=== PATIENT | male | born 1965 | race Caucasian/White ===

== ENCOUNTER 2017-10-20 14:56 | Inpatient (IN) ==
[2017-10-20] MEDS ORDERED: SALINE FLUSH 10ml SYRINGE IVF PRN (15:09)
[2017-10-20] MEDS ORDERED: NS 1,000 ML IV ONE (15:24)
--- OUTSIDE RECORDS SUMMARY | 2017-10-20 15:27 | External Medical Summary ---
:1965 Author Organization [employer] Care Team Providers Name Role Phone Josemanuel Zendejas Provider Role Unavailable Allergies No Known Allergies Problems No Known Problems Medications No Known Medications Results No Known Results Summary Purpose eClinicalWorks Submission
--- OUTSIDE RECORDS SUMMARY | 2017-10-20 15:27 | External Medical Summary ---
:1965 Author Organization [employer] Care Team Providers Name Role Phone Juan Luis Mayberry Provider Role Unavailable Allergies, Adverse Reactions, Alerts Substance Reaction Event Type N.K.D.A. Info Not Available Non Drug Allergy Problems Problem Type Condition ICD-9 Code Onset Dates Condition Status Problem DM I [Diabetes mellitus type I] 250.01 Active Problem HTN [Hypertension] 401.9 Active Problem ASTHMA NOS 493.90 Active Assessment Pneumonia 486 Active Medications Medication Code Code Instructions Start End Date Status Dosage System Date Levaquin NDC 6466 500 mg orally May 01, Active 1 tab(s) every 24 hours 2013 amlodipine NDC 00321 5 May 28, Active TAKE ONE 2013 TABLET BY MOUTH EVERY DAY Humulin 70/30 NDC 6306 human recombinant December 17, Active 10 units 70 units-30 2011 units/mL subcutaneously 2 times a day Lantus NDC 31625 100 units/mL Active 25 units subcutaneously qhs metoprolol NDC 44055 50 mg orally 2 Active 1 tab(s) times a day Albuterol HFA NDC 0 8.5gm - q 4 hours Apr 07, Active as directed pro air inhaler prn 2011 omeprazole NDC 07003 20 mg orally once Active 1 cap(s) a day Metoprolol NDC 1073 50MG Active TAKE ONE Tartrate TABLET BY MOUTH TWICE DAILY FOR 30 DAYS Reglan NDC 949 10 mg orally 4 Jul 11, Active 1 tab(s) times a day 2013 (before meals and at bedtime) Ventolin HFA NDC 0 90 mcg/inh inhaled Feb 16, Active 1-2 puffs (small) q 4 hours prn 2012 lisinopril NDC 49290 40 mg orally once Jun 25, Active 1 tab(s) a day 2013 Procedures Procedure Coding System Code Date Office/Outpatient Visit-Est CPT-4 35762 May 01, 2014 Rocephin CPT-4 J0696 May 01, 2014 Vital Signs Date/Time: May 01, 2014 Temperature 97.4 F Blood Pressure Diastolic 70 mm Hg Blood Pressure Systolic 140 mm Hg BMI 20.33 Index Height 69 in Weight 137.7 lbs Pulse 106 /min Results No Known Results Summary Purpose eClinicalWorks Submission
--- OUTSIDE RECORDS SUMMARY | 2017-10-20 15:27 | External Medical Summary ---
:1965 Author Organization [facility] Spec Address [address] [place] [address] Care Team Providers Name Role Phone Juan Luis Mayberry Unavailable Unavailable PROBLEMS Type Condition ICD9-CM Code [id number] Code Onset Condition SNOMED Code Dates Status Problem Type 1 diabetes E10.621 Active 264140973 mellitus with foot ulcer Problem HTN 401.9 Active 23008191 (hypertension) Problem ASTHMA NOS 493.90 Active 126776863 Problem DM I [Diabetes 250.01 Active 331271790 mellitus type I] ALLERGIES Unknown Allergies SOCIAL HISTORY No smoking Hx information available PLAN OF CARE VITAL SIGNS MEDICATIONS Unknown Medications RESULTS No Results PROCEDURES No Known procedures IMMUNIZATIONS No Known Immunizations
--- OUTSIDE RECORDS SUMMARY | 2017-10-20 15:27 | External Medical Summary ---
:1965 Author Organization eClinicalWorks Care Team Providers Name Role Phone Juan Luis Mayberry Provider Role Unavailable Allergies, Adverse Reactions, Alerts Substance Reaction Event Type N.K.D.A. Info Not Available Non Drug Allergy Problems Problem Type Condition Code Onset Dates Condition Status Assessment Neuropathy 355.9 Active Assessment HTN (hypertension) 401.9 Active Problem ASTHMA NOS 493.90 Active Problem DM I [Diabetes mellitus type I] 250.01 Active Problem HTN (hypertension) 401.9 Active Assessment ASTHMA NOS 493.90 Active Assessment Contracture of joint of right hand 718.44 Active Assessment CTS (carpal tunnel syndrome) 354.0 Active Assessment DM I [Diabetes mellitus type I] 250.01 Active Medications Medication Code System Code Instructions Start Date End Date Status Dosage Humulin 70/30 NDC 6306 human recombinant December 17 units 70 units-30 2011 units/mL subcutaneously 2 times a day omeprazole NDC 02331 20 mg orally once a 1 cap(s) day Lantus NDC 17406 100 units/mL 25 units subcutaneously qhs lisinopril NDC 00418 40 mg orally once a September 11 tab(s) day 2014 Procedures Procedure Coding System Code Date Office/Outpatient Visit-Est CPT-4 90427 September 11, 2014 Glycated Hemoglobin Test CPT-4 07190 September 11, 2014 Vital Signs Date/Time: September 11, 2014 Temperature 97.9 F Blood Pressure Diastolic 102 mm Hg Blood Pressure Systolic 172 mm Hg BMI 21.45 Index Height 69 in Weight 145.3 lbs Pulse 86 /min Results No Known Results Summary Purpose eClinicalWorks Submission
--- OUTSIDE RECORDS SUMMARY | 2017-10-20 15:27 | External Medical Summary ---
:1965 Author Organization [email or web address] Care Team Providers Name Role Phone Juan Luis Mayberry Provider Role Unavailable Allergies No Known Allergies Problems Problem Type Condition ICD-9 Code Onset Dates Condition Status Problem ASTHMA NOS 493.90 Active Problem DM I [Diabetes mellitus type I] 250.01 Active Problem HTN (hypertension) 401.9 Active Medications No Known Medications Results No Known Results Summary Purpose [employer] Submission
--- OUTSIDE RECORDS SUMMARY | 2017-10-20 15:27 | External Medical Summary ---
:1965 Author Organization [employer] Care Team Providers Name Role Phone Juan Luis Mayberry Provider Role Unavailable Allergies No Known Allergies Problems Problem Type Condition Code Onset Dates Condition Status Problem ASTHMA NOS 493.90 Active Problem DM I [Diabetes mellitus type I] 250.01 Active Problem HTN (hypertension) 401.9 Active Medications No Known Medications Results No Known Results Summary Purpose [employer] Submission
--- OUTSIDE RECORDS SUMMARY | 2017-10-20 15:27 | External Medical Summary ---
:1965 Author Organization [facility] Spec Address [address] [place] [address] Care Team Providers Name Role Phone Juan Luis Mayberry Unavailable Unavailable PROBLEMS Type Condition ICD9-CM Code QAP79-PB Code Onset Condition SNOMED Code Dates Status Problem Type 1 diabetes E10.621 Active 281604169 mellitus with foot ulcer Problem HTN 401.9 Active 09898778 (hypertension) Problem ASTHMA NOS 493.90 Active 579030190 Problem DM I [Diabetes 250.01 Active 779490829 mellitus type I] ALLERGIES Unknown Allergies SOCIAL HISTORY No smoking Hx information available PLAN OF CARE VITAL SIGNS MEDICATIONS Unknown Medications RESULTS No Results PROCEDURES No Known procedures IMMUNIZATIONS No Known Immunizations
--- OUTSIDE RECORDS SUMMARY | 2017-10-20 15:27 | External Medical Summary ---
:1965 Author Organization [facility] Spec Address [address] [place] [address] Care Team Providers Name Role Phone Juan Luis Mayberry Unavailable Unavailable PROBLEMS Type Condition ICD9-CM Code [id number]-RX Code Onset Condition SNOMED Code Dates Status Problem Type 1 diabetes E10.621 Active 925444503 mellitus with foot ulcer Problem HTN 401.9 Active 47818923 (hypertension) Problem ASTHMA NOS 493.90 Active 880762803 Problem DM I [Diabetes 250.01 Active 94667005 mellitus type I] ALLERGIES Unknown Allergies SOCIAL HISTORY No smoking Hx information available PLAN OF CARE VITAL SIGNS MEDICATIONS Unknown Medications RESULTS No Results PROCEDURES No Known procedures IMMUNIZATIONS No Known Immunizations
--- OUTSIDE RECORDS SUMMARY | 2017-10-20 15:28 | External Medical Summary ---
:1965 Author Organization [facility] Spec Address [address] [facility] [address] [place] [address] Care Team Providers Name Role Phone Juan Luis Mayberry Unavailable Unavailable PROBLEMS Type Condition ICD9-CM Code VSY43-VE Code Onset Condition SNOMED Code Dates Status Problem Type 1 diabetes E10.621 Active 333249473 mellitus with foot ulcer Problem HTN 401.9 Active 97107443 (hypertension) Problem ASTHMA NOS 493.90 Active 593180428 Problem DM I [Diabetes 250.01 Active 058497784 mellitus type I] ALLERGIES Unknown Allergies SOCIAL HISTORY No smoking Hx information available PLAN OF CARE VITAL SIGNS MEDICATIONS Medication Instructions Dosage Frequency Start Date End Date Duration Status Tojuan david Ruano SQ once a day 25 units 24h May, 30 days Active 300 Units/mL 2016 RESULTS No Results PROCEDURES No Known procedures IMMUNIZATIONS No Known Immunizations
--- OUTSIDE RECORDS SUMMARY | 2017-10-20 15:28 | External Medical Summary ---
:1965 Author Organization eClinicalWorks Care Team Providers Name Role Phone Juan Luis Mayberry Provider Role Unavailable Allergies No Known Allergies Problems Problem Type Condition ICD-9 Code Onset Dates Condition Status Problem DM I [Diabetes mellitus type I] 250.01 Active Problem HTN [Hypertension] 401.9 Active Problem ASTHMA NOS 493.90 Active Medications No Known Medications Results No Known Results Summary Purpose [employer] Submission
--- OUTSIDE RECORDS SUMMARY | 2017-10-20 15:28 | External Medical Summary ---
:1965 Author Organization [employer] Care Team Providers Name Role Phone Juan Luis Mayberry Provider Role Unavailable Allergies No Known Allergies Problems Problem Type Condition Code Onset Dates Condition Status Problem HTN (hypertension) 401.9 Active Problem ASTHMA NOS 493.90 Active Problem Type 1 diabetes mellitus with foot E10.621 Active ulcer Problem DM I [Diabetes mellitus type I] 250.01 Active Medications No Known Medications Results No Known Results Summary Purpose [employer] Submission
--- OUTSIDE RECORDS SUMMARY | 2017-10-20 15:28 | External Medical Summary ---
[...] Medications Results No Known Results Summary Purpose [employer] Submission
--- OUTSIDE RECORDS SUMMARY | 2017-10-20 15:28 | External Medical Summary ---
:1965 Author Organization [facility] Spec Address [address] [facility] [place] [address] Care Team Providers Name Role Phone Juan Luis Mayberry Unavailable Unavailable PROBLEMS Type Condition ICD9-CM Code URB21-XD Code Onset Condition SNOMED Code Dates Status Problem Type 1 diabetes E10.621 Active 991568987 mellitus with foot ulcer Problem HTN 401.9 Active 24866417 (hypertension) Problem ASTHMA NOS 493.90 Active 644775251 Problem DM I [Diabetes 250.01 Active 33437450 mellitus type I] ALLERGIES Unknown Allergies SOCIAL HISTORY No smoking Hx information available PLAN OF CARE VITAL SIGNS MEDICATIONS Unknown Medications RESULTS No Results PROCEDURES No Known procedures IMMUNIZATIONS No Known Immunizations
--- NOTE | 2017-10-20 15:37 | CT Scan Report ---
Indication: HTN, memory loss, HX CVA PROCEDURE: CT head/brain wo con: Encounter: Initial Comparison: None Technique: Axial CT images through the head were performed without contrast. Iterative Reconstruction dose reducing technique was utilized. 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 The ventricles are of normal size, shape, and contour for the patient's age. There are scattered areas of low attenuation in the white matter which most likely represent changes from chronic microvascular ischemia. The brainstem, cerebellum, and cerebral hemispheres otherwise have a normal morphology and CT attenuation. There is no evidence of midline displacement. No hemorrhage, signs of acute territorial stroke, mass effect, mass lesions, or edema is evident. The visualized portions of the skull base, midface, and calvarium demonstrate no abnormality. The paranasal sinuses are well aerated and free of significant disease. The tympanic and mastoid cavities appear normal. IMPRESSION: No acute intracranial abnormality or hemorrhage. .
--- NOTE | 2017-10-20 16:19 | Emergency Department Report ---
General Adult HPI - General Chief complaint: Neuro Symptoms/Deficit Stated complaint: Doesnt remember anything since tuesday Source: patient Mode of arrival: ambulatory Limitations: no limitations - History of Present Illness HPI narrative: Pt presents with a complaint of memory loss for about 5 days. Pt notes he cannot recall going to work or making purchases on Tuesday. He states memory has slowly been returning but on Tuesday was concerned enough that he stayed with his son. He denies any recent illness, fever, vision changes, headaches, chest pain, cough, GI complaints, or dizziness. He denies street drug or alcohol use. he reports a history of HTN, DM, and a CVA 7 years ago. Pt is a requesting a note to return to work. Onset (ago): day(s) Associated symptoms: denies other symptoms - Related Data Home Medications Medication Instructions Recorded Confirmed Albuterol Sulfate [Proair Hfa] 2 puff INH Q4H PRN 10/20/17 10/20/17 Atenolol [Tenormin] 50 mg PO DAILY 10/20/17 10/20/17 Fluticasone/Vilanterol Inhaler 1 puff INH DAILY 10/20/17 10/20/17 [Breo Ellipta 100-25 mcg Inhaler] Insulin Aspart [Novolog Flexpen] 5 unit SQ TIDWM 10/20/17 10/20/17 Insulin Detemir [Levemir Flextouch] 10 unit SQ AMI 10/20/17 10/20/17 Insulin Detemir [Levemir Flextouch] 15 unit SQ HS 10/20/17 10/20/17 Lisinopril [Prinivil] 20 mg PO HS 10/20/17 10/20/17 Lisinopril [Prinivil] 40 mg PO QAM 10/20/17 10/20/17 Omeprazole [Prilosec] 20 mg PO DAILY 10/20/17 10/20/17 Allergies Allergy/AdvReac Type Severity Reaction Status Date / Time No Known Allergies Allergy Verified 10/20/17 15:07 Review of Systems All systems: reviewed and negative except as stated Constitutional: Reports: as per HPI Cardiovascular: Reports: as per HPI Respiratory: Reports: as per HPI Gastrointestinal: Reports: as per HPI Musculoskeletal: Reports: as per HPI Neurological: Reports: as per HPI Psychiatric: Reports: as per HPI [facility] Patient Stated Medical History Cerebrovascular Accident Yes: HEMORRHAGIC Hypertension Yes Asthma Yes Diabetes Mellitus Type 1 Yes Gastroesophageal Reflux Yes Disease - Social History Smoking status: Never smoker Physical Exam - Limitations Limitations: no limitations - General General appearance: alert, in no apparent distress - Normal Exams: Head:: Normocephalic without trauma Eyes:: Pupils are PERRLA w/ EOMI Neck:: Full range of motion, without adenopathy Chest/Respirations:: Clear all fuentes, with good airflow, and symmetry bilaterally Cardiovascular:: Regular rate and rhythm, without murmur or gallop, Pulses 2+ all extremities, capillary refill, <2 seconds all extremities Abdomen:: Bowel sounds positive, soft, non-tender, non-distended Musculoskeletal:: No tenderness, or deformity noted, good range of motion, all extremities Integumentary:: No rashes Neurological:: Patient is alert, and oriented, cranial nerves, motor/sensory/ cerebellar, exams w/o gross deficits, to observation Psychiatric:: Patient exhibits, appropriate attention, emotion and affect Course Vital Signs Temperature 98 F 10/20/17 15:00 Pulse Rate 77 10/20/17 15:00 Respiratory Rate 18 10/20/17 15:00 Blood Pressure 223/104 H 10/20/17 15:00 Pulse Oximetry 100 10/20/17 15:00 Temperature 98 F 10/20/17 15:00 Pulse Rate 77 10/20/17 15:00 Respiratory Rate 18 10/20/17 15:00 Blood Pressure 223/104 H 10/20/17 15:00 Pulse Oximetry 100 10/20/17 15:00 Medical Decision Making - [facility] Narrative Medical decision making narrative: Labs and diagnostics reviewed and results discussed with pt. Pt remains hypertensive with SBP 190-220. PT given Clonidine 0.2mg. BP remains elevated. Pt denies current BPs as normal for him. He is adamant that he takes his prescribed meds on a regular basis. Pt then given 20mg of Hydralazine with no effect. 20 mg of Labetalol with still no effect. Confirmed BP cuff size and placement with nursing. Pt then provided Esmolol bolus and started on gtt. BP slowly dropping to 180 systolic. When discussing need for admission pt refuses and is wanting to leave. Pt informed of risks such as CVA and . Pt still desires to leave AMA and asked for note to return to work. Return to work release refused 2/2 need for admit. Later discussions with nursing and the fact he could not return to work pt decided to accept admission. Dr Zimmerman notified, presentation and findings discussed and will admit. - Differential Diagnosis Migraine, CVA, TIA, drug use - Lab Data Lab results reviewed: Yes: I reviewed the patient's lab results. Result diagrams: 10/20/17 15:34 10/20/17 15:34 Lab Results 10/20/17 10/20/17 10/20/17 Range/Units 15:10 15:34 15:34 WBC 8.5 (4.5-11.0) T/MM3 RBC 4.65 (4.50-5.90) M/MM3 Hgb 13.6 (13.5-17.5) GM/DL Hct 40.2 L (41-53) % MCV 86.5 (80-100) UM3 MCH 29.2 (26-34) UUG MCHC 33.8 (31-37) GM/DL RDW Std Deviation 38.8 (36.9-50.2) FL Plt Count 284 (130-400) T/MM3 MPV 11.0 (9.4-12.4) UM3 Immature Gran % (Auto) 0.2 (0.0-0.5) % Neut % (Auto) 72.1 H (33-66) % Lymph % (Auto) 17.2 L (23-45) % [place] % (Auto) 6.0 (0-9.0) % Eos % (Auto) 4.1 H (0-4) % Baso % (Auto) 0.4 (0-2) % Neut # (Auto) 6.1 (1.8-7.7) T/MM3 Lymph # (Auto) 1.5 (1-4.8) T/MM3 [place] # (Auto) 0.5 (0-0.8) T/MM3 Eos # (Auto) 0.4 (0-0.5) T/MM3 Baso # (Auto) 0.0 (0-0.2) T/MM3 Abs Immat Gran (auto) 0.02 (0.00-0.03) T/MM3 Turbidity < 20 (0-20) Sodium 142 (134-144) MEQ/L Potassium 4.5 (3.6-5) MEQ/L Chloride 106 (98-107) MEQ/L Carbon Dioxide 26 (22-30) MEQ/L Anion Gap 10 (5-15) meq/L BUN 14.0 (9-20) MG/DL Creatinine 1.0 (0.8-1.5) mg/dL GFR Calculation 78 BUN/Creatinine Ratio 14 (6-26) RATIO Glucose 294 H (75-110) MG/DL Glucometer 287 (65-110) mg/dL Calculated Osmolality 285 H (261-280) MOSM/KG Calcium 8.7 (8.4-10.2) MG/DL Total Bilirubin 0.40 (0.20-1.30) MG/DL Icterus Index < 2 (0-7) AST 29 (17-59) U/L ALT 26 (1-50) U/L Alkaline Phosphatase 109 (38-126) U/L Total Protein 6.2 L (6.3-8.2) g/dL Albumin 3.7 (3.5-5.0) g/dL Globulin 2.5 (2.4-3.6) G/DL Albumin/Globulin Ratio 1.5 (1.1-2.2) RATIO Specimen Hemolysis < 15 (0-25) Urine Opiates Screen ng/mL Ur Oxycodone Screen ng/mL Urine Methadone Screen ng/mL Ur Propoxyphene Screen ng/mL Ur Barbiturates Screen ng/mL U Tricyclic Antidepress ng/mL Ur Phencyclidine Scrn ng/mL Ur Amphetamines Screen ng/mL U Methamphetamines Scrn ng/mL U Benzodiazepines Scrn ng/mL Urine Cocaine Screen ng/mL U Cannabinoids Screen ng/mL 10/20/17 Range/Units 15:40 WBC (4.5-11.0) T/MM3 RBC (4.50-5.90) M/MM3 Hgb (13.5-17.5) GM/DL Hct (41-53) % MCV (80-100) UM3 MCH (26-34) UUG MCHC (31-37) GM/DL RDW Std Deviation (36.9-50.2) FL Plt Count (130-400) T/MM3 MPV (9.4-12.4) UM3 Immature Gran % (Auto) (0.0-0.5) % Neut % (Auto) (33-66) % Lymph % (Auto) (23-45) % [place] % (Auto) (0-9.0) % Eos % (Auto) (0-4) % Baso % (Auto) (0-2) % Neut # (Auto) (1.8-7.7) T/MM3 Lymph # (Auto) (1-4.8) T/MM3 [place] # (Auto) (0-0.8) T/MM3 Eos # (Auto) (0-0.5) T/MM3 Baso # (Auto) (0-0.2) T/MM3 Abs Immat Gran (auto) (0.00-0.03) T/MM3 Turbidity (0-20) Sodium (134-144) MEQ/L Potassium (3.6-5) MEQ/L Chloride (98-107) MEQ/L Carbon Dioxide (22-30) MEQ/L Anion Gap (5-15) meq/L BUN (9-20) MG/DL Creatinine (0.8-1.5) mg/dL GFR Calculation BUN/Creatinine Ratio (6-26) RATIO Glucose (75-110) MG/DL Glucometer (65-110) mg/dL Calculated Osmolality (261-280) MOSM/KG Calcium (8.4-10.2) MG/DL Total Bilirubin (0.20-1.30) MG/DL Icterus Index (0-7) AST (17-59) U/L ALT (1-50) U/L Alkaline Phosphatase (38-126) U/L Total Protein (6.3-8.2) g/dL Albumin (3.5-5.0) g/dL Globulin (2.4-3.6) G/DL Albumin/Globulin Ratio (1.1-2.2) RATIO Specimen Hemolysis (0-25) Urine Opiates Screen Negative ng/mL Ur Oxycodone Screen Negative ng/mL Urine Methadone Screen Negative ng/mL Ur Propoxyphene Screen Negative ng/mL Ur Barbiturates Screen Negative ng/mL U Tricyclic Antidepress Negative ng/mL Ur Phencyclidine Scrn Negative ng/mL Ur Amphetamines Screen Negative ng/mL U Methamphetamines Scrn Negative ng/mL U Benzodiazepines Scrn Negative ng/mL Urine Cocaine Screen Negative ng/mL U Cannabinoids Screen Negative ng/mL Disposition Clinical Impression: Hypertension Qualifiers: Hypertension type: essential hypertension Qualified Code(s): I10 - Essential ( primary) hypertension Disposition: 02 To [facility] [place] Acute Care Condition: Stable Prescriptions: No Action Albuterol Sulfate [Proair Hfa] 2 puff INH Q4H PRN PRN Reason: Shortness Of Air/Wheezing Lisinopril [Prinivil] 20 mg PO HS Atenolol [Tenormin] 50 mg PO DAILY Lisinopril [Prinivil] 40 mg PO QAM Insulin Aspart [Novolog Flexpen] 5 unit SQ TIDWM Insulin Detemir [Levemir Flextouch] 10 unit SQ AMI Omeprazole [Prilosec] 20 mg PO DAILY Fluticasone/Vilanterol Inhaler [Breo Ellipta 100-25 mcg Inhaler] 1 puff INH DAILY Insulin Detemir [Levemir Flextouch] 15 unit SQ HS Referrals: Kristie Quijano APRN [Primary Care Provider] - Juan Luis Mayberry DO [Physician] - Time of Disposition: 19:53 - Seen By: [email or web address]
[2017-10-20] MEDS ORDERED: HYDRALAZINE 10 MG TABLET PO ONE (16:55)
[2017-10-20] MEDS ORDERED: LABETALOL 100mg/20ml INJECTION IVP ONE (17:39)
[2017-10-20] MEDS ORDERED: ESMOLOL 100 MG/10 ML INJECTION IVP ONE ×2 (18:13→18:23)
[2017-10-20] MEDS ORDERED: ESMOLOL DRIP 2,500 MG/250 ML BAG IV PRN ×2 (18:15→20:31)
[2017-10-20] MEDS ORDERED: HYDROCODONE/APAP 5mg/325mg TABLET PO PRN (20:31)
[2017-10-20] MEDS ORDERED: MORPHINE SULFATE 4mg INJECTION IVP PRN (20:31)
[2017-10-20] MEDS ORDERED: ONDANSETRON 4 MG/2 ML INJECTION IVP PRN (20:31)
[2017-10-20] MEDS ORDERED: ACETAMINOPHEN 325 MG TABLET PO PRN (20:31)
[2017-10-20] MEDS ORDERED: ALBUTEROL 2.5mg/3ml (0.083%) NEB AEROSOL PRN (20:31)
[2017-10-20 20:58] VITALS: BMI 24.7
[2017-10-20] MEDS ORDERED: INSULIN DETEMIR 100unit/ml INJECTION SQ SCH (21:00)
--- NOTE | 2017-10-20 21:07 | History & Physical Report ---
History of Present Illness Date: 10/20/17 Chief complaint: memory loss HPI: This is a 52 y/o male who has a history of DM 1? (diabetic since age 19) and HTN. The patient currently is without health insurance. He had an episode starting last and lasting until Tuesday am where he doesn't recall. He reported to work this weekend (Tuesday) and work told him to go home he wasn't acting right. He lives alone. Patient finally started feeling better by Tuesday and presented to the ED for a note to return to work. He has been taking his bp meds for the past 2 days. Doesn't remember the 4 days previous. In the ED his SBP 230's. No sx. He had a metabolic workup that was negative. Cardiac workup that was negative. He was treated with clondine no effect. hydralazine 20 mg with no effect. labetalol 20 mg without effect. finally started on an esmolol drip that did improve. He stated that his only sx were that he had flashing to his periphreal vision when his memory started coming back. At this time he is admitted to IcU on esmolol drip and further monitoring. Review of Systems Review of systems: no headache, vision changes as noted above, chronic tinnitus, no neck or jaw pain, no chest pain, no pnd, no orthopnea, no abdomen pain, no nausea or vomiting, no change in bowel or bladder activity, no skin rashes. no focal motor weakness. 12 point careful ROS negative except for outlined above. Past Medical History Medical History Updates: hemorrhage left hemispheric cva 7 yrs ago, HTN, DM probable type 1, GERD, tinnitus Surgical History: abdomen wall abscess drained (from insulin needle) Family History Updates: mother from lung cancer. 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 Current occupational exposures/hazards: No Does patient use chewing tobacco?: No Medications Home Medications Medication Instructions Recorded Confirmed Type Albuterol Sulfate [Proair Hfa] 2 puff INH Q4H PRN 10/20/17 10/20/17 History Atenolol [Tenormin] 50 mg PO DAILY 10/20/17 10/20/17 History Fluticasone/Vilanterol Inhaler 1 puff INH DAILY 10/20/17 10/20/17 History [Breo Ellipta 100-25 mcg Inhaler] Insulin Aspart [Novolog Flexpen] 5 unit SQ TIDWM 10/20/17 10/20/17 History Insulin Detemir [Levemir Flextouch] 10 unit SQ AMI 10/20/17 10/20/17 History Insulin Detemir [Levemir Flextouch] 15 unit SQ HS 10/20/17 10/20/17 History Lisinopril [Prinivil] 20 mg PO HS 10/20/17 10/20/17 History Lisinopril [Prinivil] 40 mg PO QAM 10/20/17 10/20/17 History Omeprazole [Prilosec] 20 mg PO DAILY 10/20/17 10/20/17 History Allergies Allergy/AdvReac Type Severity Reaction Status Date / Time No Known Allergies Allergy Verified 10/20/17 15:07 Exam Vital Signs: Temperature 98 F 10/20/17 15:00 Pulse Rate 72 10/20/17 20:04 Respiratory Rate 21 10/20/17 20:00 Blood Pressure 177/85 H 10/20/17 20:10 Pulse Oximetry 95 10/20/17 20:00 Telemetry Rhythm: Sinus Rhythm Height/Weight/BMI: Height 1.75 m Weight 76.2 kg Body Mass Index 24.7 - Constitutional Present: no acute distress, well nourished, well developed, average body habitus , cooperative - Routine HEENT Exam Head: Present: normocephalic, atraumatic Eye: Present: normal accommodation, conjunctivae pink. Absent: scleral injection ENT: Present: mucous membranes moist - Routine Neck Exam Present: supple, full ROM - Routine Respiratory Exam Present: CTA bilaterally - Routine Cardiovascular Exam Present: no murmur. Absent: S3 - Routine Abdominal Exam Present: soft, normoactive bowel sounds, non distended, non tender - Routine Extremities Exam Present: no edema, full ROM - Routine Back/Spine/Pelvis Exam Back/Spine: Present: full ROM - Routine Skin Exam Present: intact - Routine Neurological Exam Present: alert, oriented X3, CN II-XII intact, moving all extremities, normal tone, normal speech. Absent: sensory deficit, motor deficit, altered mental status, abnormal gait, hemineglect, facial asymmetry, tremors - Routine Psychiatric Exam Present: normal affect, normal thought process Results - Labs CBC & Chem 7: 10/20/17 15:34 10/20/17 15:34 Labs: reviewed and pertinent labs discussed below CT head negative EKG sinus without evidence of HTN or ischemia Assessment and Plan (1) Hypertensive urgency Current visit: Yes Status: Acute (2) Hypertension Current visit: Yes Status: Acute (3) DM type 1 (diabetes mellitus, type 1) Current visit: Yes Status: Acute (4) History of hemorrhagic cerebrovascular accident (CVA) without residual deficits Current visit: Yes Status: Acute (5) Tinnitus Current visit: Yes Status: Acute (6) Transient global amnesia Current visit: Yes Status: Acute Assessment and Plan: 1. hypertensive urgency acute POA: patient with sig elevated blood pressure with no real sx. no headache, no neuro, no renal disease. very innocuous. States that he takes his meds as prescribed but with epsiode of amnesia ? missed several doses of b farrah and maria r inhib during last weekend. Multiple meds in ED without effect. esmolol gtt working. Patient without health care insurance. see how his blood pressure does overnight. Will not echo, will not doppler. will instead see if starting his meds gets his pressure close to target. Note that ekg does not inform chronic high htn. 2. transient global amnesia acute not POA: at least that is how it appears. not related to CVA. ? related to HTN. CT head reasuring. initially wanted to do mri and carotic and echo but with no insurance not sure if want to do that to the patient. Rather consult neruo in the am to make further considerations. Consider PRES 3. DM1 chronic POA: correctional plan 4. GERD: PPI 5. tinnitis chronic POA: to be aware of. ? related to previous CVA. consider outpatient workup. doesn't sound like he overuses asa products 6. dVT ppx: SCD, lovenox 7. gastric ppx: PPI 8. social: ask social work to visit with patient regarding resources. DVT Prophylaxis: SCD's, Lovenox GI Prophylaxis: Protonix Resuscitation Status: Full Code - Time spent with patient Time with patient PN: 35 minutes - Physician Narrative Physician: Catalina Ga MD Narrative: Date: 10/20/17 Time: 2102 Hospital Course Summary Disclaimer: The visit summary below is not to be considered part of the above Progress Note.
[2017-10-20] MEDS: LISINOPRIL 20 MG TABLET PO SCH (21:13)
[2017-10-20] MEDS: ENOXAPARIN 40 MG/0.4 ML INJECTION SQ SCH (21:15)
[2017-10-20] MEDS ORDERED: DEXTROSE 50% SYRINGE 50ml (1 AMP) IVP PRN (21:18)
[2017-10-20] MEDS ORDERED: ARFORMOTEROL NEB 15mcg/2ml AEROSOL PRN (22:05)
[2017-10-20] MEDS ORDERED: BUDESONIDE INH.SOLN 0.25mg/2ml NEB AEROSOL PRN (22:05)
[2017-10-21] MEDS: INSULIN ASPART 100unit/ml INJECTION SQ PRN ×3 (06:44→14:11)
[2017-10-21] MEDS: OMEPRAZOLE 20 MG CAPSULE PO SCH (07:09)
[2017-10-21] MEDS: INSULIN DETEMIR 100unit/ml INJECTION SQ SCH (07:09)
[2017-10-21] MEDS ORDERED: FLUTICASONE/VILANTEROL 100/25mcg INHALER IH SCH (09:00)
[2017-10-21] MEDS: LISINOPRIL 40 MG TABLET PO SCH (09:31)
[2017-10-21] MEDS: POLYETHYL GLYCOL 3350 17gm PACKET PO SCH (09:32)
--- NOTE | 2017-10-21 10:44 | Consultation ---
DATE OF CONSULTATION 10/21/[address] Ga PATIENT'S CHIEF COMPLAINT Amnesia. HISTORY OF PRESENT ILLNESS Patient is a 52-year-old male with history of type 1 diabetes and hypertension. The patient had an episode of complete amnesia which started last until this Tuesday. The patient had no recollection to the events happening during this period of time. He went to work on Tuesday and he was told to go back home because he was not acting right. The patient lives by himself alone. He was finally able to get better and he presented to work on Tuesday and he was told to get a note from the doctor to release him to work. So he came to the emergency room asking for that. The patient was found to have a very high blood pressure in the 230/120 range. His lab workup was unremarkable, his cardiac workup was negative. The patient had a CT of the head that showed no acute abnormalities. The patient has a history of hemorrhagic stroke seven years ago associated with morbid hypertension. This affected his right side at that time and it took him two years to recover from the weakness that he had. The patient denies taking any drugs or alcohol during that period of time. The patient usually monitors his blood sugar at home on a regular basis. He is not sure if he had any abnormality during the amnesia period. The patient has been back to normal for the past three or four days. He has had no complains of confusion or headache. He has had no focal weakness or numbness. His blood pressure has been gradually improving with medication and his last blood pressure reading was 153/67. PHYSICAL EXAMINATION On physical examination the patient was awake, alert, oriented x3. Pupils were round, reactive and equal. Extraocular muscles were intact. Visual field was full. Speech was fluent. Motor examination was 5/5 in all extremities. Sensory examination was limited to light touch and pinprick in the feet mainly. Deep tendon reflexes were 2/4. Plantar reflexes were in flexion bilaterally. Coordination for [id number] was normal bilaterally. ASSESSMENT 1. Patient presents with an episode of amnesia a lasting for 3-4 days. His workup has revealed morbid hypertension with a blood pressure in the 230/100+. The patient also has a history of type 1 diabetes for which he takes insulin at home. It is not clear if the patient has been doing his medication properly during this period. The main diagnostic concern for the patient's condition includes hypertensive encephalopathy. 2. We cannot also rule out the possibility of a transient global amnesia which is less likely in this clinical setting due to the length of time for the event. 3. We cannot also rule out completely the possibility of seizure-like event, especially with the prior history of intracranial hemorrhage and brain scarring. 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 PLAN 1. Optimize treatment for hypertension and keep it in the upper range of normal. 2. Optimize treatment for diabetes and monitor glucose level on a regular basis. 3. Consider having an EEG in the outpatient setting if having new confusion in the future. 4. Provide good fluid intake, avoid excessive alcohol intake and try to have a regular physician if possible. MALINDAD
[2017-10-21] MEDS: ENOXAPARIN 40 MG/0.4 ML INJECTION SQ SCH (11:03)
--- NOTE | 2017-10-21 12:32 | Magnetic Resonance Report ---
Indication: amnesia and severe hypertension PROCEDURE: MR head/brain wo con: Encounter: Initial Comparisons: Head CT dated October 20, 2017 Technique: Multiplanar, multisequence, MR imaging of the head without contrast was acquired. FINDINGS: Old subinsular left frontal lobe infarct with cystic encephalomalacia and a peripheral hemosiderin rim. This region measures 3 cm anteroposteriorly x 0.6 cm transversely on axial image #13. There is also evidence of a small old lacunar infarct in the right aspect of the kraig. The ventricles are of normal size, shape, and contour for the patient's age. The brain stem, cerebellum, and cerebral hemispheres otherwise have a normal morphologic appearance as well as MR signal intensity on all pulse sequences. There are no areas of restricted diffusion on diffusion weighted imaging to suggest an acute infarct. There is no evidence of an intracranial mass lesion, intracranial hemorrhage, or hydrocephalus. The visualized portions of the orbits, calvarium, paranasal sinuses, and skull base demonstrate no significant abnormality. IMPRESSION: No acute intracranial hemorrhage or infarct. Old left frontal and right pontine infarcts. .
[2017-10-21] MEDS: ATENOLOL 50 MG TABLET PO SCH (12:54)
[2017-10-21] MEDS ORDERED: ENOXAPARIN 40 MG/0.4 ML INJECTION SQ SCH (20:00)
[2017-10-21] MEDS: LISINOPRIL 20 MG TABLET PO SCH (20:10)
[2017-10-21] MEDS ORDERED: INSULIN ASPART 100unit/ml INJECTION SQ ONE (20:17)
[2017-10-21] MEDS ORDERED: INSULIN DETEMIR 100unit/ml INJECTION SQ SCH (21:00)
[2017-10-22] MEDS: OMEPRAZOLE 20 MG CAPSULE PO SCH (06:45)
[2017-10-22] MEDS: INSULIN DETEMIR 100unit/ml INJECTION SQ SCH (06:46)
[2017-10-22] MEDS: ATENOLOL 50 MG TABLET PO SCH (08:06)
[2017-10-22] MEDS: LISINOPRIL 40 MG TABLET PO SCH (08:06)
[2017-10-22] MEDS: POLYETHYL GLYCOL 3350 17gm PACKET PO SCH (08:08)
[2017-10-22] MEDS: INSULIN ASPART 100unit/ml INJECTION SQ PRN (10:38)
[2017-10-22 11:06] VITALS: RESP 15; TEMP 97.7
--- NOTE | 2017-10-22 12:17 | Discharge Summary ---
Discharge Information Date of admission: 10/20/17 20:02 Anticipated date of discharge: 10/22/17 Attending Physician: Catalina Ga MD Primary care physician: Kristie Quijano APRN Consults: 10/21/17 02:30 Physician Consult [CONS] Routine Consulting Provider: Lo Sharp Reason For Exam: amnesia Ordering Provider has Notified [employer] Filer Hand: No - Discharge Diagnosis (1) Hypertension Status: Acute (2) Hypertensive urgency Status: Acute (3) DM type 1 (diabetes mellitus, type 1) Status: Acute (4) History of hemorrhagic cerebrovascular accident (CVA) without residual deficits Status: Acute (5) Tinnitus Status: Acute (6) Transient global amnesia Status: Acute Hypertensive urgency Hypertension Amnesia of approximately 48 hours [id number] unknown Type 1 diabetes mellitus History of hemorrhagic CVA Tinnitus Social issues with lack of health insurance and needing to present to retirement this weekend. - Procedures Procedures: none - Laboratory Labs: Hemoglobin 13.6, white count 8.5, platelets 284, neutrophils 72%, lymphs 17%, eosinophils 4.1% TSH normal at 1.01 Hemoglobin A1c 9.7 Liver enzymes normal on admission other than total protein 6.2 10/22/17 04:01 - Radiology Radiology: CT head 10/20/2017 FINDINGS: Old left MCA territory infarct in the subinsular region. The ventricles are of normal size, shape, and contour for the patient's age. There are scattered areas of low attenuation in the white matter which most likely represent changes from chronic microvascular ischemia. The brainstem, cerebellum, and cerebral hemispheres otherwise have a normal morphology and CT attenuation. There is no evidence of midline displacement. No hemorrhage, signs of acute territorial stroke, mass effect, mass lesions, or edema is evident. The visualized portions of the skull base, midface, and calvarium demonstrate no abnormality. The paranasal sinuses are well aerated and free of significant disease. The tympanic and mastoid cavities appear normal. IMPRESSION: No acute intracranial abnormality or hemorrhage. MRI brain 10/21/2017 FINDINGS: Old subinsular left frontal lobe infarct with cystic encephalomalacia and a peripheral hemosiderin rim. This region measures 3 cm anteroposteriorly x 0.6 cm transversely on axial image #13. There is also evidence of a small old lacunar infarct in the right aspect of the kraig. The ventricles are of normal size, shape, and contour for the patient's age. The brain stem, cerebellum, and cerebral hemispheres otherwise have a normal morphologic appearance as well as MR signal intensity on all pulse sequences. There are no areas of restricted diffusion on diffusion weighted imaging to suggest an acute infarct. There is no evidence of an intracranial mass lesion, intracranial hemorrhage, or hydrocephalus. The visualized portions of the orbits, calvarium, paranasal sinuses, and skull base demonstrate no significant abnormality. IMPRESSION: No acute intracranial hemorrhage or infarct. Old left frontal and right pontine infarcts. History of Present Illness HPI: This is a 52 y/o male who has a history of DM 1? (diabetic since age 19) and HTN. The patient currently is without health insurance. He had an episode starting last and lasting until Tuesday am where he doesn't recall. He reported to work this weekend (Tuesday) and work told him to go home he wasn't acting right. He lives alone. Patient finally started feeling better by Tuesday and presented to the ED for a note to return to work. He has been taking his bp meds for the past 2 days. Doesn't remember the 4 days previous. In the ED his SBP 230's. No sx. He had a metabolic workup that was negative. Cardiac workup that was negative. He was treated with clondine no effect. hydralazine 20 mg with no effect. labetalol 20 mg without effect. finally started on an esmolol drip that did improve. He stated that his only sx were that he had flashing to his periphreal vision when his memory started coming back. At this time he is admitted to [facility] on esmolol drip and further monitoring. Dr Ga The patient is a very pleasant 52-year-old male with type 1 diabetes and hypertension. He does not have health insurance but [facility] He states he was taking his medications as directed. He states that he does not remember anything that happened on Tuesday the or Tuesday. He states that he went to work on Tuesday and was told that he seemed normal but he does not remember this. His son found him in his hotel room where he has been staying on Tuesday and reportedly the patient was crying and saying that he felt scared so he spent the night Tuesday night with his son. He states his memory started to get better on Tuesday the . He states that he went to work on Tuesday the and felt back to normal, but when he told his boss that he doesn't remember anything from Tuesday, they told him he needed a work release to return to work. He presented to the emergency room for work release and was found to have severe hypertension with blood pressure 223/104. The patient was feeling fine and had no chest pain, shortness of breath, headache, confusion, vision changes or any neurologic symptoms. In the emergency room he was given several oral antihypertensives including hydralazine, labetalol, and clonidine with no effect. At that time, the decision was made to admit him to intensive care and start an esmolol drip. Objective Vital signs: Temperature 97.7 F 10/22/17 08:00 Pulse Rate 63 10/22/17 11:00 Respiratory Rate 15 10/22/17 11:00 Blood Pressure 186/79 H 10/22/17 11:00 Pulse Oximetry 96 10/22/17 08:00 Height/Weight/BMI: Height 1.75 m Weight 75.3 kg Body Mass Index 24.7 Comments: On the day of discharge, the patient is afebrile, heart rate 64, blood pressure 152/78, O2 sats are normal on room air. The patient is alert and oriented 3 and in no acute distress. No focal deficits. Chest is clear to auscultation. Cardiovascular reveals a regular rate and rhythm. Abdomen is soft and nontender. Extremities are free of edema. Hospital Course This is a general summary of the patient's hospital course. For more details refer to the complete medical record. Hospital course: The patient was admitted on the evening of 10/20/2017 with markedly elevated blood pressure and started on esmolol drip. Early in the morning on 10/21/2017 esmolol drip was discontinued and did not need to be restarted. The patient was restarted on his usual home blood pressure medications which are atenolol 50 mg once daily, lisinopril 40 mg in the morning and 20 mg in the evening. Patient's blood pressures were elevated for the majority of his stay. On the morning of blood pressure was intermittently elevated and as high as 200/90. He was started on hydrochlorothiazide 12.5 in addition to his usual morning medications. At noon blood pressure was 152/78. The patient has been asymptomatic with this elevated blood pressure. Specifically, he has had no headaches, vision changes, confusion, slurred speech , chest pain or shortness of breath. Blood sugars have been moderately elevated, likely because he did not receive his evening dose of long-acting insulin on the evening of admission. Blood sugars are improving. A1c is elevated as above. Regarding the patient's episode of amnesia last weekend, he has had no confusion or altered mental status while here. No neurologic symptoms while he has been here. He was evaluated by Dr. Sharp with his assessment and plan below: ASSESSMENT 1. Patient presents with an episode of amnesia a lasting for 3-4 days. His workup has revealed morbid hypertension with a blood pressure in the 230/100+. The patient also has a history of type 1 diabetes for which he takes insulin at home. It is not clear if the patient has been doing his medication properly during this period. The main diagnostic concern for the patient's condition includes hypertensive encephalopathy. 2. We cannot also rule out the possibility of a transient global amnesia which is less likely in this clinical setting due to the length of time for the event. 3. We cannot also rule out completely the possibility of seizure-like event, especially with the prior history of intracranial hemorrhage and brain scarring. 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 PLAN 1. Optimize treatment for hypertension and keep it in the upper range of normal. 2. Optimize treatment for diabetes and monitor glucose level on a regular basis. 3. Consider having an EEG in the outpatient setting if having new confusion in the future. 4. Provide good fluid intake, avoid excessive alcohol intake and try to have a regular physician if possible. MRI of the brain was obtained which showed results as above. On the morning of 10/22/2017, the patient was felt to be stable for dismissal. He will continue to take his usual medications. The only new medication is hydrochlorothiazide 12.5 mg once daily. The patient was notified that this can sometimes cause low potassium, but this is less likely when people are taking lisinopril as he is. He will need to follow-up with his primary care provider this coming week to monitor his blood pressure and check basic metabolic profile. The patient was scheduled to present himself to the [facility] this weekend for 48 hours regarding a previous DUI. I think he is stable to go to retirement this weekend and he would like to go and "get this over with". I notified him that it is extremely important that he continued to all of his medications as prescribed while he is in retirement and after discharge. I also told him that he should notify the retirement her that he has had recent problems with high blood pressure and amnesia last weekend and if he should have neurologic symptoms or seemed confused, he should be brought to the emergency room. I also discussed with the patient that he should notify his son and coworkers that if he appears confused he should be evaluated in the emergency room. Resuscitation Status: Full Code Discharge Plan - Discharge Disposition Disposition: Discharged Home, Self-Care *Condition: Stable Reason For Visit (Visit label in EMR): Hypertensive urgency, recent amnesia - Discharge Medications *Discharge Medications: New hydroCHLOROthiazide [Hydrochlorothiazide] 12.5 mg PO DAILY #30 tab Continue Albuterol Sulfate [Proair Hfa] 2 puff INH Q4H PRN PRN Reason: Shortness Of Air/Wheezing Lisinopril [Prinivil] 20 mg PO HS Atenolol [Tenormin] 50 mg PO DAILY Lisinopril [Prinivil] 40 mg PO QAM Insulin Aspart [Novolog Flexpen] 5 unit SQ TIDWM Insulin Detemir [Levemir Flextouch] 10 unit SQ AMI Omeprazole [Prilosec] 20 mg PO DAILY Fluticasone/Vilanterol Inhaler [Breo Ellipta 100-25 mcg Inhaler] 1 puff INH DAILY Insulin Detemir [Levemir Flextouch] 15 unit SQ HS - Discharge Packet/Instructions *Diet: Diabetic diet *Activity: Activity as tolerated *Pain Management/Treatment: Tylenol as needed for pain *Wound Care: Not applicable Additional Instructions: Notify the retirement nurse, your coworkers, and your family that if you seem confused or appear to have neurologic symptoms, they should call 911 or take you directly to the emergency room. Check your blood pressure daily. Take a list of your blood pressures to your appointment with your doctor this coming week. You will also need blood work to check on your potassium level (basic metabolic profile). *Expected Signs/Symptoms: You should expect to feel back to normal. *Notify Physician if: Seek medical attention if you feel lightheaded, weak, fatigued, confused, or have recurrence of amnesia, or blood pressure elevation. 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
[2017-10-22 13:18] VITALS: BP 152/78; PULSE 68; O2SAT 98
== END 2017-10-22 13:45 | disposition home or self-care (01) | DRG 305 ==
LOC: ED 14:56 → EDHOLD 20:02 → CCU 20:15
PROVIDERS: ADMIT Emergency Medicine; ATTEND Internal Medicine